=== PATIENT | male | born 1980 | race Caucasian/White ===

== ENCOUNTER 2017-10-21 12:03 | Emergency (ER) | payer SELFPAY ==
[~2017-10-21] VITALS: Ht 177.8 cm; Wt 70.0 kg
[2017-10-21] MEDS ORDERED: CEFAZOLIN 1000MG PREMIX 50 ML IV ONE (13:00)
[2017-10-21 14:32] VITALS: BP 120/68
== END 2017-10-21 14:36 | disposition home or self-care (01) ==
LOC: ER 12:17
DX: L03.113 Cellulitis of right upper limb (principal); L01.09 Other impetigo; F15.10 Other stimulant abuse, uncomplicated; I25.2 Old myocardial infarction; F17.200 Nicotine dependence, unspecified, uncomplicated
CPT/HCPCS: 93005; 96365; 99284; J0690; Z7610